=== PATIENT | female | born 1960 | race Caucasian/White ===

== ENCOUNTER 2018-11-24 15:16 | Inpatient (IN) | payer BC ==
[~2018-11-24] VITALS: Ht 160 cm; Wt 94.8 kg
[2018-11-24 15:16] VITALS: BP_SYST 206
[2018-11-24] MEDS ORDERED: LORazepam 2 MG/ML VIAL IVP ONE (16:00)
[2018-11-24] MEDS ORDERED: NITROGLYCERIN 1 INCH (GM) OINT. TP ONE (16:00)
[2018-11-24] MEDS ORDERED: ASPIRIN 81 MG TAB.CHEW PO ONE (16:00)
[2018-11-24] MEDS ORDERED: KETOROLAC TROMETHAMINE 30 MG VIAL IVP ONE (16:00)
[2018-11-24 16:22] LABS: BASOPHILS # (AUTO) 0.1 K/uL (0.0-0.2); BASOPHILS % (AUTO) 0.9 % (0.0-2.0); EOSINOPHILS # (AUTO) 0.2 K/uL (0.0-0.4); EOSINOPHILS % (AUTO) 2.6 % (0.0-4.0); HEMATOCRIT 45.6 % (36-48); HEMOGLOBIN 15.9 g/dL (12.0-16.0); LYMPHOCYTES # (AUTO) 1.6 K/uL (1.0-5.5); LYMPHOCYTES % (AUTO) 25.7 % (20.5-51.5); MEAN CORPUSCULAR HEMOGLOBIN 33 pg (27-31); MEAN CORPUSCULAR HGB CONC 35 % (32-36); MEAN CORPUSCULAR VOLUME 93 fL (79.0-98.0); MONOCYTES # (AUTO) 0.4 K/uL (0.0-1.0); MONOCYTES % (AUTO) 6.6 % (1.7-9.3); NEUTROPHILS % (AUTO) 64.2 % (40.0-70.0); PLATELET COUNT (AUTO) 163 K/uL (130-430); RED BLOOD CELL COUNT(AUTO) 4.88 MIL/uL (4.2-6.2); RED CELL DISTRIBUTION WIDTH 12.6 % (9.0-15.0); WHITE BLOOD COUNT (AUTO) 6.2 K/uL (4.8-10.8)
[2018-11-24 16:32] LABS: CALCIUM 9.1 mg/dL (8.4-11.0); CREATININE 0.73 mg/dL (0.55-1.30); POTASSIUM 3.8 mmol/L (3.5-5.1)
[2018-11-24 16:39] LABS: ALBUMIN 4.2 g/dL (3.4-4.8); TOTAL BILIRUBIN 1.1 mg/dL (0.0-1.0)
[2018-11-24] MEDS ORDERED: hydrALAZINE HCL 20 MG/ML VIAL IVP ONE (17:30)
[2018-11-24] MEDS ORDERED: MORPHINE 4 MG/ML INJ. SYRINGE IVP ONE ×2 (17:45→20:00)
[2018-11-24] MEDS ORDERED: ONDANSETRON HCL 4 MG/2 ML VIAL IVP ONE (17:45)
[2018-11-24] MEDS ORDERED: METOPROLOL TARTRATE 5 MG/5 ML VIAL IVP ONE (17:45)
[2018-11-24 18:47] VITALS: BP_SYST 121
[2018-11-24 20:00] VITALS: BP_SYST 123
[2018-11-24] MEDS ORDERED: MORPHINE 4 MG/ML INJ. SYRINGE IVP PRN (20:45)
[2018-11-24] MEDS ORDERED: ONDANSETRON HCL 4 MG/2 ML VIAL IVP PRN (20:45)
[2018-11-24] MEDS ORDERED: ALBUTEROL SULFATE 0.083% 2.5 MG/3 ML VIAL.NEB INH PRN (20:45)
[2018-11-24] MEDS ORDERED: MORPHINE 2 MG/ML INJ. SYRINGE IVP PRN (20:45)
[2018-11-24] MEDS ORDERED: hydrALAZINE HCL 25 MG TABLET PO PRN (21:00)
[2018-11-24] MEDS: ACETAMINOPHEN 325 MG TABLET PO PRN (21:02)
[2018-11-24] MEDS: CARVEDILOL 25 MG TABLET (COREG) PO SCH (21:03)
[2018-11-24 21:22] VITALS: BP_SYST 123
[2018-11-24] MEDS ORDERED: IBUPROFEN 600 MG TABLET PO ONE (22:00)
[2018-11-25] VITALS: BP_SYST 119
[2018-11-25] MEDS ORDERED: COMMUNICATION ORDER XX ONE (00:15)
[2018-11-25] MEDS ORDERED: FLU VACC QUAD 2019-20(36MOS UP) 60 MCG/0.5 ML SYRINGE I.M. PRN (00:30)
[2018-11-25] MEDS: ENOXAPARIN SODIUM 100 MG/ML SYRINGE SUBCUT SCH ×2 (00:48→11:00)
[2018-11-25] MEDS ORDERED: NACL 0.9% 1,000 ML IV SCH (05:00)
[2018-11-25 05:03] VITALS: BP_SYST 115
[2018-11-25 06:48] LABS: BASOPHILS % (AUTO) 0.6 % (0.0-2.0); EOSINOPHILS % (AUTO) 0.4 % (0.0-4.0); HEMATOCRIT 40.3 % (36-48); HEMOGLOBIN 13.9 g/dL (12.0-16.0); LYMPHOCYTES # (AUTO) 1.5 K/uL (1.0-5.5); LYMPHOCYTES % (AUTO) 18.8 % (20.5-51.5); MEAN CORPUSCULAR HEMOGLOBIN 33 pg (27-31); MEAN CORPUSCULAR HGB CONC 35 % (32-36); MEAN CORPUSCULAR VOLUME 95 fL (79.0-98.0); MONOCYTES # (AUTO) 0.5 K/uL (0.0-1.0); MONOCYTES % (AUTO) 6.3 % (1.7-9.3); NEUTROPHILS # (AUTO) 6.1 K/uL (1.8-7.7); NEUTROPHILS % (AUTO) 73.9 % (40.0-70.0); PLATELET COUNT (AUTO) 161 K/uL (130-430); RED BLOOD CELL COUNT(AUTO) 4.27 MIL/uL (4.2-6.2); RED CELL DISTRIBUTION WIDTH 12.5 % (9.0-15.0)
[2018-11-25 06:56] LABS: ALBUMIN 3.6 g/dL (3.4-4.8); CALCIUM 8.9 mg/dL (8.4-11.0); CREATININE 0.71 mg/dL (0.55-1.30); POTASSIUM 3.8 mmol/L (3.5-5.1); TOTAL BILIRUBIN 1.1 mg/dL (0.0-1.0)
[2018-11-25 06:59] LABS: WHITE BLOOD COUNT (AUTO) 8.2 K/uL (4.8-10.8)
[2018-11-25] MEDS: ACETAMINOPHEN 325 MG TABLET PO PRN (07:55)
[2018-11-25] MEDS: CARVEDILOL 25 MG TABLET (COREG) PO SCH (08:40)
[2018-11-25] MEDS ORDERED: ASPIRIN 81 MG TAB.CHEW PO SCH (09:00)
[2018-11-25 09:09] VITALS: BP_SYST 126
[2018-11-25] MEDS ORDERED: ENOXAPARIN SODIUM 100 MG/ML SYRINGE SUBCUT ONE (12:30)
[2018-11-25 12:47] VITALS: BP_SYST 122
== END 2018-11-25 13:27 | disposition short-term general hospital (02) | DRG 282 ==
LOC: SED 15:16 → STU 17:46 → OBSVTOIN 11-25 08:40
PROVIDERS: ADMIT Internal Medicine Hospice and Palliative Medicine; ATTEND Internal Medicine Hospice and Palliative Medicine
DX: I21.4 Non-ST elevation (NSTEMI) myocardial infarction (principal); E66.9 Obesity, unspecified; I10 Essential (primary) hypertension; I16.0 Hypertensive urgency; Z82.49 Family history of ischemic heart disease and other diseases of the circulatory system; Z91.14 Patient's other noncompliance with medication regimen; Z91.19 Patient's noncompliance with other medical treatment and regimen; Z68.37 Body mass index [BMI] 37.0-37.9, adult
CPT/HCPCS: 36415; 71045; 80053; 80061; 82550-TC; 83880; 84484; 85025; 93005; 93306; 94640; 96374; 96375; 99285; G0378; J0360; J1650; J1885; J2060; J2270; J2405; J3490; J7030; J7613; Q2037